=== PATIENT | female | born 1965 | race Caucasian/White ===

== ENCOUNTER 2024-06-21 09:33 | Emergency (ER) | payer OTHER, SELFPAY ==
[2024-06-21] VITALS (8 sets, daily range): BP systolic 122–139; BP diastolic 64–76; PULSE 97–120; RESP 14–21; TEMP 36.9–37.7; O2SAT 95–100; BMI 32.9
--- NOTE | 2024-06-21 09:38 | ECG_ITS ---
APPROVED REPORT Exam: Resting ECG HR:114 bpm ECG Measurements Heart Rate 114 AXES NC 149 P 73 QRSd 85 QRS 105 QT 318 T 67 QTc 386 Conclusion SINUS TACHYCARDIA RIGHT AXIS DEVIATION [QRS AXIS > 100] ABNORMAL ECG Electronically signed by : GIL MCGRATH, 06/22/2024 06:56:40
--- NOTE | 2024-06-21 10:08 | XR_ITS ---
FINAL REPORT TECHNIQUE: Single view chest CLINICAL HISTORY: dyspnea FINDINGS: A single view of the chest was obtained. The heart and mediastinum are within normal limits. The lungs are clear. There is no pneumothorax. IMPRESSION: No acute cardiopulmonary process. Reviewed, Interpreted and Dictated by Mohsen Molina MD Transcribed by Madie Gutierrez Authenticated and . [facility]
--- NOTE | 2024-06-21 10:10 | HMH.EDGENADL ---
Discharge Plan Disposition Patient Disposition: Home, Self-Care Prescriptions Prescriptions: New oseltamivir [Tamiflu] 75 mg capsule 75 mg PO BID 5 Days Qty: 10 0RF albuterol sulfate 90 mcg/actuation HFA aerosol inhaler 4 inh inhalation Q4H PRN (Reason: shortness of breath or wheezing) Qty: 8.5 0RF Rx Instructions: 4 puffs every 4 hours for 48 hours then as needed for shortness of breath or wheezing following [id number] 2-30-10 mg/5 mL syrup 5 ml PO Q6H PRN (Reason: cold symptoms) 7 Days Qty: 118 0RF Referrals Follow up/Referrals: Kristyn Robles [Primary Care Provider] - See instructions Woody Rome MD [Physician] - See instructions Activity Restrictions/Add. Instructions Additional Instructions/Restrictions: You have influenza A given the fact that I believe you have underlying lung disease and your symptoms have started within 48 hours we have treated you with a medication called Tamiflu which may reduce the duration of your symptoms. There is no evidence of pneumonia. Please take your symptomatic medications as indicated. You are giving a long-acting steroid and no more steroids are needed. Please take your breathing treatment as needed in addition to your cough medicine. He also may take 800 mg of ibuprofen and 1000 mg of Tylenol 3 times a day as needed for fever and bodyaches. I also strongly recommend you follow-up with our hospice case manager, a referral has been made. Clinical Impressions Clinical Impression: Influenza A, Acute viral syndrome, Reactive airway disease, Encounter for smoking cessation counseling Print Language Print Language: Uzbek Discharge ED Provider: Ramone Mario General Adult HPI General Chief complaint: Shortness of Breath/Dyspnea Stated complaint: SOA, cough Time Seen by Provider: 06/21/24 10:04 Mode of Arrival: Ambulatory Source of Information: Patient Limitations: No Limitations Description of Symptoms (Recalled from ER Triage Doc. by RN): c/o soa with coughing that started this morning, white mucus sometimes with cough. pt reports that she is having back and upper gastric pain from coughing. some diarrhea when she coughs. Denies n/v History of Present Illness HPI narrative: 59-year-old female with a history of chronic smoking but no diagnosed COPD presents today with 2 days of feeling warm significant cough musculoskeletal chest wall and back pain associated with coughing. No exertional chest pain or radiation. States that she had pneumonia back in November and is concerned she has the same thing. Related Data Previous Rx's ?Medication ?Instructions ?Recorded albuterol sulfate 90 mcg/actuation 4 inh inhalation Q4H PRN shortness 06/21/24 aerosol inhaler of breath or wheezing #8.5 grams ijeuvdnmkzeuwcs-bzgtooxtqaltudf-PQ 5 ml PO Q6H PRN cold symptoms 7 06/21/24 2 mg-30 mg-10 mg/5 mL oral syrup days #118 mL oseltamivir 75 mg capsule (Tamiflu) 75 mg PO BID 5 days #10 caps 06/21/24 Allergies Allergy/AdvReac Type Severity Reaction Status Date / Time No Known Allergies Allergy Verified 06/21/24 10:08 [facility] Disclaimer: The information contained in this section may have been updated after the patient was seen, as this information can be updated by other users. Social History Smoking Status: Current every day smoker alcohol intake: never current occupational status: other Travel in the last 8 weeks: None ROS Obtained: Yes All systems reviewed & no additional complaints except as documented Physical Exam General General appearance: alert and in no apparent distress Respiratory Respiratory exam: Present other (Some expiratory wheezing otherwise no significant respiratory distress or focal adventitious lung sounds or accessory muscle use) Cardiovascular Cardiovascular exam: Present tachycardia Neurological Exam Neurological exam: Present alert and oriented X3 Medical Decision Making Medical Records Screening: Per USPSTF and CDC recommendations, given the prevalence of disease in our region, it is our hospital?s policy to screen for HIV and viral Hepatitis for all patients aged 18 and over and those with ongoing risk factors. Yoel Inquiry Pt receiving controlled substance: No Vital Signs: 06/21/24 09:34 06/21/24 09:38 06/21/24 10:00 Temperature 99.8 F H Temperature Source Oral Pulse Rate 120 H 120 H Pulse Rate [Left Radial] 119 H Respiratory Rate 18 21 Blood Pressure 139/76 123/73 Blood Pressure [Right Arm] 139/76 Blood Pressure Mean [Right Arm] 97 Blood Pressure Source [Right Arm] Automatic Cuff 02 Sat by Pulse Oximetry 97 97 99 Oxygen Delivery Method Room Air Room Air Room Air 06/21/24 10:30 06/21/24 10:45 06/21/24 11:00 Temperature Temperature Source Pulse Rate 108 H 109 H 100 H Pulse Rate [Left Radial] Respiratory Rate 14 20 19 Blood Pressure 122/75 122/75 130/64 Blood Pressure [Right Arm] Blood Pressure Mean [Right Arm] Blood Pressure Source [Right Arm] 02 Sat by Pulse Oximetry 100 96 95 Oxygen Delivery Method Room Air Room Air Room Air 06/21/24 11:31 06/21/24 11:36 Temperature 98.4 F Temperature Source Pulse Rate 107 H 97 H Pulse Rate [Left Radial] Respiratory Rate 19 20 Blood Pressure 132/64 132/64 Blood Pressure [Right Arm] Blood Pressure Mean [Right Arm] Blood Pressure Source [Right Arm] 02 Sat by Pulse Oximetry 95 Oxygen Delivery Method Room Air Lab Data Lab results reviewed: Yes I reviewed the patient's lab results. Lab Results 06/21/24 09:45: WBC 6.5, RBC 5.25, Hgb 12.8, Hct 41.3, MCV 78.7 L, MCH 24.4 L, MCHC 31.0 L, RDW 15.7, Plt Count 225, MPV 10.9 H, Neut % (Auto) 78.5, Lymph % (Auto) 12.0, [place] % (Auto) 8.5, Eos % (Auto) 0.3, Baso % (Auto) 0.5, Neut # (Auto) 5.1, Lymph # (Auto) 0.8, [place] # (Auto) 0.6, Eos # (Auto) 0.0, Baso # (Auto) 0.0, Sodium 134 L, Potassium 3.8, Chloride 100, Carbon Dioxide 26, Anion Gap 11.8, BUN 15, Creatinine 0.70, Estimated Creat Clear 113, Estimated GFR 86, Est GFR ( Amer) 104, Glucose 163 H, Calcium 8.9, Total Bilirubin 0.2, AST 26, ALT 20, Alkaline Phosphatase 103, Troponin I < 0.01, NT-Pro-B Natriuret Pep 49.5, Total Protein 7.2, Albumin 4.3, Globulin 2.9, Albumin/Globulin Ratio 1.5 06/21/24 10:11: VBG pH 7.35, VBG pCO2 46.7, VBG pO2 39.4, VBG HCO3 25.0, VBG Total CO2 26.4, VBG O2 Saturation 72.5 H, VBG Base Excess -0.7, VBG Lactic Acid 2.0 02/10/25 10:15: SARS-CoV-2 (PCR) Not detected, Influenza A Untype (PCR) Detected A, Influenza Type B (PCR) Not detected 06/21/24 09:45 06/21/24 09:45 Orders (Tests/Meds): ED MEDICATIONS Discontinued Medications Generic Name Dose Route Start Last Admin Trade Name Freq PRN Reason Stop Dose Admin Albuterol/Ipratropium 3 ml 06/21/24 10:08 06/21/24 10:14 Ipratropium/Albuterol 3 Ml Neb IH 06/21/24 10:09 3 ml ONCE ONE Administration Dexamethasone Sodium Phosphate 10 mg 06/21/24 10:08 06/21/24 10:14 Dexamethasone 4mg/Ml 1ml Vial IV 06/21/24 10:09 10 mg ONCE ONE Administration Sodium Chloride 1,000 mls @ 999 mls/hr 06/21/24 10:15 06/21/24 10:16 Sod Chlor 0.9% 1000ml Bag IV 06/21/24 11:15 999 mls/hr .Q1H1M AUDELIA Administration Ketorolac Tromethamine 15 mg 06/21/24 10:08 06/21/24 10:14 Ketorolac 30mg/Ml Vial IV 06/21/24 10:09 15 mg ONCE ONE Administration ORDERS Category Date Time Status CXR --portable [XR chest portable] Stat Exams 06/21/24 10:08 Completed BNP [NT Pro Brain Natriuretic Pep.] Stat Lab 06/21/24 09:45 Completed CBC w/Auto Diff [Complete Blood Count Auto Diff] Stat Lab 06/21/24 09:45 Completed CMP [Comprehensive Metabolic Panel] Stat Lab 06/21/24 09:45 Completed Rapid PCR Covid and Flu A/B Stat Lab 06/21/24 10:15 Completed Trop I [Troponin I] Stat Lab 06/21/24 09:45 Completed Troponin I Q3H Lab 06/21/24 13:15 Ordered Troponin I Q3H Lab 06/21/24 16:15 Ordered Blood Culture Stat Micro 06/21/24 10:26 Received Venous Blood Gas Stat RT 06/21/24 10:11 Completed Medical Decision Narrative: 59-year-old actively coughing borderline febrile and is tachycardic with likely underlying COPD given her chronic smoking and presentation presents today with viral symptoms. Differential also includes bacterial illness such as superimposed pneumonia. Will check for COVID and flu and treated for COPD exacerbation with nebs and steroids. IV fluids also will be administered given her tachycardia. And the Toradol for the chest and back pain that she is experiencing that is likely musculoskeletal in nature. Will reassess after this initial workup is complete Reassessment 1155 chest x-ray performed which I personally interpreted shows no acute cardiopulmonary emergency. Patient is flu positive given the fact that I believe she has underlying COPD and she is within 48 hours will initiate Tamiflu. Other supportive care has been discussed prescription were sent. Return precautions emphasized patient was discharged in stable and improved condition with advised to follow-up with pulmonology. Critical Care Critical Care Time Critical Care Time: Yes Attestation: On 06/21/24, the high probability of a clinically significant, sudden or life threatening deterioration of the following system(s) required my full and direct attention, intervention and personal management. The time I documented below is in addition to time spent performing reported procedures but includes the following listed in this critical care notation. Total Time Total Critical Care Time: 35
--- NOTE | 2024-06-21 10:11 | PC.NURSE ---
respiratory aware of vbg
[2024-06-21] MEDS: DEXAMETHASONE 4MG/ML 1ML VIAL 10 MG IV (10:14)
[2024-06-21] MEDS: KETOROLAC 30MG/ML VIAL 15 MG IV (10:14)
[2024-06-21] MEDS: IPRATROPIUM/ALBUTEROL 3 ML NEB IH (10:14)
[2024-06-21 10:16] LABS: VBG Base Excess -0.7 mmol/L (-2.4-2.3); VBG Oxygen Saturation 72.5 % (50-70); VBG PCO2 46.7 mmol/L (35-51); VBG PH 7.35 mmol/L (7.31-7.41); VBG PO2 39.4 mmol/L (28-40); VBG Total CO2 26.4 mmol/L (23-27)
[2024-06-21] MEDS: 0.9 % SODIUM CHLORIDE 1000ML 1,000 ML 999 ML IV (10:16)
[2024-06-21 10:22] LABS: Coronavirus 19, PCR Not Detected (NotDetected); Influenza B, PCR Not Detected (NotDetected)
[2024-06-21 10:23] LABS: Basophils % 0.5 % (0.1-2.0); Eosinophils % 0.3 % (0.1-12.0); Hematocrit 41.3 % (37.0-47.0); Hemoglobin 12.8 g/dL (12.2-16.2); Lymphocytes # 0.8 K/mm3 (0.7-4.5); Mean Corpuscular Hemoglobin 24.4 pg (27.0-31.2); Mean Corpuscular Volume 78.7 fl (81-99); Mean Platelet Volume 10.9 fl (7.4-10.4); Monocytes # 0.6 K/mm3 (0.1-1.0); Monocytes % 8.5 % (1.7-9.3); Neutrophils # 5.1 K/mm3 (1.8-7.8); Neutrophils % 78.5 % (37.0-80.0); Platelet Count 225 K/mm3 (142-424); Red Blood Count 5.25 M/mm3 (4.20-5.40); Red Cell Distribution Width 15.7 % (11.5-17.5); White Blood Count 6.5 K/mm3 (4.8-10.8)
[2024-06-21 10:26] LABS: Chloride 100 mmol/L (98-107)
[2024-06-21 10:27] LABS: Albumin Level 4.3 g/dl (3.5-5.0); Potassium 3.8 mmoL/L (3.5-5.1); Sodium 134 mmol/L (136-145)
[2024-06-21 10:29] LABS: Alanine Aminotransferase 20 U/L (12-78); Aspartate Amino Transferase 26 U/L (14-36); Blood Urea Nitrogen 15 mg/dl (7-17); Creatinine Clearance Estimated 113 mL/min (50-200); Estimated Glomerular Filt Rate 86 ml/min (>60); GFR (African American) 104 ML/MIN (>60)
[2024-06-21 10:30] LABS: Albumin/Globulin Ratio 1.5 (1.1-1.8); Alkaline Phosphatase 103 U/L (38-126); Anion Gap 11.8 mEq/L (5-15); Bilirubin,Total 0.2 mg/dl (0.2-1.3); Calcium 8.9 mg/dl (8.4-10.2); Carbon Dioxide 26 mmol/L (22.0-30.0); Globulin 2.9 g/dL (1.3-3.2); Glucose 163 mg/dl (74-100); Total Protein,Serum 7.2 g/dl (6.3-8.2)
--- NOTE | 2024-06-21 10:30 | PC.NURSE ---
2nd blood culture drawn and sent to lab; blue band placed on left wrist.
[2024-06-21 10:39] LABS: NT Pro Brain Natriuretic Pep. 49.5 pg/mL (0-125)
[2024-06-21 10:47] LABS: Troponin I < 0.01 ng/ml (0.00-0.034)
--- NOTE | 2024-06-21 11:00 | PC.NURSE ---
ROUNDED ON THE PT. THE PT VOICES THAT SHE DOES NOT NEED ANYTHING AT THIS TIME. CALL LIGHT IS WITHIN REACH OF THE PT.
--- NOTE | 2024-06-21 11:11 | PC.NURSE ---
called about update for covid/flu results, they just finished and they will put in the computer
[2024-06-21 11:25] LABS: Influenza A, PCR Detected (NotDetected)
--- NOTE | 2024-06-21 11:25 | PC.NURSE ---
CALLED LAB FOR STATUS UPDATE ON COVID/FLU SWAB RESULTS VENESSA IN LAB STATED CARTER WAS TRYING TO RE RESULT AGAIN
== END 2024-06-21 12:06 | disposition home or self-care (01) ==
PROVIDERS: Emergency Provider Student in an Organized Health Care Education/Training Program; PCP Nurse Practitioner
DX: J10.1 Influenza due to other identified influenza virus with other respiratory manifestations (principal); J45.909 Unspecified asthma, uncomplicated; B34.9 Viral infection, unspecified; R06.02 Shortness of breath; R05.9 Cough, unspecified; M54.9 Dorsalgia, unspecified; Z72.0 Tobacco use; Z71.6 Tobacco abuse counseling
CPT/HCPCS: 71045; 80053; 82803; 83880; 84484; 85025; 87040; 87636; 93005; 96361; 96374; 96375; 99284; J1100; J1885; J7030; J7620